=== PATIENT | male | born 1990 | race Hispanic/Latino ===

== ENCOUNTER 2023-07-27 12:08 | Emergency (ER) | payer MEDICAID ==
[~2023-07-27] VITALS: Ht 149.9 cm; Wt 111.1 kg
[2023-07-27 12:49] LABS: RED BLOOD CELL COUNT(AUTO) 4.39 MIL/uL (4.50-6.20); WHITE BLOOD COUNT (AUTO) 6.6 K/uL (4.8-10.8)
[2023-07-27 12:50] LABS: BASOPHILS # (AUTO) 0.06 K/uL (0.00-0.20); BASOPHILS % (AUTO) 0.9 % (0.0-5.0); EOSINOPHILS # (AUTO) 0.12 K/uL (0.00-0.70); EOSINOPHILS % (AUTO) 1.8 % (0.0-8.0); HEMATOCRIT 42.9 % (42-54); IMMATURE GRANULOCYTE ABSOLUTE 0.02 K/uL (0-1); LYMPHOCYTES # (AUTO) 1.6 K/uL (1.0-4.8); LYMPHOCYTES % (AUTO) 23.8 % (21.0-51.0); MEAN CORPUSCULAR HEMOGLOBIN 33.7 pg (27.0-33.0); MEAN CORPUSCULAR HGB CONC 34.5 g/dL (32.0-36.0); MEAN CORPUSCULAR VOLUME 97.7 fL (79-99); MONOCYTES # (AUTO) 0.4 K/uL (0.1-1.0); MONOCYTES % (AUTO) 6.1 % (3.0-13.0); NEUTROPHILS # (AUTO) 4.4 K/uL (1.8-7.7); NEUTROPHILS % (AUTO) 67.1 % (40.0-77.0); PLATELET COUNT (AUTO) 181 K/uL (130-400); RED CELL DISTRIBUTION WIDTH 12.8 % (11.0-15.5)
[2023-07-27 13:04] LABS: ALBUMIN 2.7 g/dL (3.5-5.0); CREATININE 1.2 mg/dL (0.5-1.5); POTASSIUM 3.7 mmol/L (3.5-5.1); TOTAL PROTEIN, SERUM 7.3 g/dL (6.0-8.3)
[2023-07-27] MEDS: DICYCLOMINE HCL 10 MG/5 ML ML PO ONE (16:14)
[2023-07-27] MEDS: LIDOCAINE HCL 2% VISCOUS 15 ML UDCUP PO ONE (16:14)
[2023-07-27] MEDS: FAMOTIDINE 20MG TAB PO ONE (16:14)
[2023-07-27] MEDS: MAG/ALUM/SIMETH 30 ML UDCUP PO ONE (16:14)
[2023-07-27 17:08] LABS: ADD UA MICROSCOPIC NO; APPEARANCE,URINE CLEAR (CLEAR); BILIRUBIN,URINE NEGATIVE (NEGATIVE); COLOR,URINE LIGHT-YELLOW (YELLOW); GLUCOSE, URINE (UA) NEGATIVE (NEGATIVE); KETONES,URINE NEGATIVE (NEGATIVE); LEUKOCYTE ESTERASE ,URINE NEGATIVE Leu/uL (NEGATIVE); NITRATE,URINE NEGATIVE (NEGATIVE); OCCULT BLOOD,URINE NEGATIVE (NEGATIVE); PH,URINE 6.5 (5.0-8.0); PROTEIN,URINE NEGATIVE (NEGATIVE); UROBILINOGEN,URINE 0.2 mg/dL (0.2-1.0)
[2023-07-27 17:41] VITALS: BP 133/54; PULSE 59; RESP 18; O2SAT 100
== END 2023-07-27 17:45 | disposition home or self-care (01) ==
LOC: EDH 12:08
DX: R07.89 Other chest pain (principal); E11.9 Type 2 diabetes mellitus without complications; E78.00 Pure hypercholesterolemia, unspecified
CPT/HCPCS: 36415; 71045; 80053; 81003; 84484; 85025; 85730; 93005